=== PATIENT | female | born 1990 | race Hispanic/Latino ===

== ENCOUNTER 2017-05-27 01:43 | Emergency (ER) | payer SELFPAY ==
[~2017-05-27] VITALS: Ht 160 cm; Wt 73.5 kg
[2017-05-27] MEDS ORDERED: ONDANSETRON HCL 4 MG ORAL DISINTEGRATING TAB SL ONE (02:00)
[2017-05-27] MEDS ORDERED: IBUPROFEN 200 MG TAB PO ONE (02:00)
[2017-05-27] MEDS ORDERED: ACETAMINOPHEN 325 MG TAB PO ONE ×2 (02:00→03:15)
[2017-05-27] MEDS ORDERED: PENICILLIN V P500 MG PO (02:24)
[2017-05-27] MEDS ORDERED: LIDOCAINE1 EA PO (02:24)
[2017-05-27] MEDS ORDERED: IBUPROFEN400 MG PO (02:24)
[2017-05-27] MEDS ORDERED: ZOFRAN ODT4 MG SL (03:54)
== END 2017-05-27 04:00 | disposition home or self-care (01) ==
LOC: FSED 01:43
DX: R50.9 Fever, unspecified (principal); J02.0 Streptococcal pharyngitis; J03.00 Acute streptococcal tonsillitis, unspecified
CPT/HCPCS: 81003; 81025; 83518; 87400; 99283